=== PATIENT | male | born 1975 | race Caucasian/White ===

== ENCOUNTER 2021-11-06 14:09 | Emergency (ER) | payer OTHER ==
[~2021-11-06 14:09] MED LIST: FLEXERIL5 MG PO; NORCO 5-325 TA1 EACH PO
[2021-11-06 14:30] LABS: BASOPHIL 0.4 % (0-2); EOSINOPHIL 0.7 & (0-5); HCT 46.7 % (42.0-52.0); HGB 15.7 g/dl (13.2-18.0); LYMPHOCYTE 26.1 % (15-48); MCHC 33.6 g/dL (32.0-36.0); MCV 89.3 fL (78.0-100.0); MONOCYTE 9.2 % (0-12); MPV 9.5 fL (6.0-9.5); NEUTROPHIL 62.9 % (41-80); PLT 332 K/uL (150-400); RBC 5.23 M/uL (4.70-6.00); RDW 11.9 % (11.5-14.0); WBC 6.83 K/uL (4.0-10.5)
[2021-11-06 14:53] LABS: ALBUMIN 4.3 g/dL (3.4-5.0); BILIRUBIN - TOTAL 0.5 mg/dL (0.2-1.0); BUN/CREAT RATIO (CALC) 19.1 RATIO; CREATININE 1.1 mg/dL (0.67-1.17); GLOBULIN (CALCULATION) 3.6 g/dL; POTASSIUM 3.9 mmol/L (3.5-5.1); TOTAL PROTEIN 7.9 g/dL (6.4-8.2)
[2021-11-06] MEDS ORDERED: CLARITIN10 MG PO (16:54)
[2021-11-06] MEDS ORDERED: ONDANSETRON ODT4 MG PO (16:55)
[2021-11-06] MEDS ORDERED: EPIPEN0.3 MG/0.3 IM (16:55)
== END 2021-11-06 19:10 | disposition home or self-care (01) ==
LOC: FER 14:09
PROVIDERS: Internal Medicine
DX: T78.1XXA Other adverse food reactions, not elsewhere classified, initial encounter (principal); R11.2 Nausea with vomiting, unspecified; L29.9 Pruritus, unspecified; R22.1 Localized swelling, mass and lump, neck; R00.0 Tachycardia, unspecified; Z28.310 Unvaccinated for COVID-19; Z87.891 Personal history of nicotine dependence; Z88.1 Allergy status to other antibiotic agents; Z88.0 Allergy status to penicillin; Z91.013 Allergy to seafood; Z88.2 Allergy status to sulfonamides; Z91.018 Allergy to other foods; X58.XXXA Exposure to other specified factors, initial encounter
CPT/HCPCS: 36415; 80053; 84484; 85025; 93005; 94640; 94664; 96372; J0171; J1200; J2405; J2550; J2930; J7030